=== PATIENT | female | born 1955 | race American Indian/Alaskan Native ===

== ENCOUNTER 2018-01-28 05:51 | Day surgery (SDC) | payer OTHER ==
[2018-01-28] MEDS ORDERED: ECOTRIN PO ONE ×2 (06:21→06:22)
[2018-01-28 06:56] LABS: Basophils # (Auto) 0.1 K/mm3 (0.0-0.1); Basophils % (Auto) 0.8 % (0.0-1.8); Eosinophils # (Auto) 0.3 K/mm3 (0.0-0.4); Hemoglobin 12.9 gm/dl (10.1-14.3); Lymphocytes # (Auto) 2.5 K/mm3 (1.2-5.4); Lymphocytes % (Auto) 38.4 % (13.4-35.0); Mean Corpuscular HGB Conc 33 % (30-34); Mean Corpuscular Hemoglobin 26 pg (28-32); Mean Corpuscular Volume 79 fl (79-97); Monocytes # (Auto) 0.5 K/mm3 (0.0-0.8); Platelet Count 286 K/mm3 (140-440); Red Blood Count 4.95 M/mm3 (3.65-5.03); Red Cell Distribution Width 14.3 % (13.2-15.2)
[2018-01-28] MEDS ORDERED: NACL 0.9% 500 ML 500 ML IV SCH (07:00)
[2018-01-28 07:03] LABS: INR 0.93 (0.87-1.13)
[2018-01-28 08:14] LABS: BUN/Creatinine Ratio 24; Blood Urea Nitrogen 22 mg/dL (7-17); Calcium 9.4 mg/dL (8.4-10.2); Hemolysis Index 18
[2018-01-28] MEDS ORDERED: XYLOCAINE 2% INFILTRATI ONE (08:43)
[2018-01-28] MEDS ORDERED: CALAN ONE (08:43)
[2018-01-28] MEDS ORDERED: NITROGLYCERIN SYRINGE 3 ML ONE (08:43)
[2018-01-28] MEDS ORDERED: HEPARIN/NS 5000 UNIT/500ML(CATH LAB) 1,000 ML IR ONE (08:43)
[2018-01-28] MEDS ORDERED: HEPARIN 10,000 UNITS/10 ML ONE (08:43)
[2018-01-28] MEDS ORDERED: VERSED ONE (08:45)
[2018-01-28] MEDS ORDERED: SUBLIMAZE ONE (08:45)
[2018-01-28] MEDS ORDERED: BENADRYL ONE (09:05)
--- NOTE | 2018-01-28 09:55 | Discharge Summary ---
Short Stay Discharge Plan Activity: advance as tolerated Weight Bearing Status: Full Weight Bearing Diet: low fat, low cholesterol, low salt Wound: keep clean and dry Special Instructions: no heavy lifting (3 days) Follow up with: JERI KURTZ MD [Primary Care Provider] - 7 Days MARIA EUGENIA RICHARDS MD [Staff Physician] - 7 Days
[2018-01-28] MEDS ORDERED: NACL 0.9% 1000 ML 1,000 ML IV SCH (10:00)
[2018-01-28 12:46] VITALS: BP 116/69
--- NOTE | 2018-01-29 00:02 | Cardiac Catherization Report ---
CARDIAC CATHETERIZATION REASON FOR PROCEDURE: Chest pain. PROCEDURE: The patient was prepped and draped in a sterile fashion after informed consent. The right radial cath site was prepped and draped after a negative Deon's test. The right radial artery was entered using the Seldinger technique followed by placement of a 6-Kinyarwanda hydrophilic sheath. Selective left and right coronary angiography was performed using #3.5 left Venus and #4 right Venus. The right Venus catheter was used for left ventricle angiography. FINDINGS: HEMODYNAMICS: Left ventricle end diastolic pressure was 21, following coronary angiography. Ascending aortic pressure was 140/69. There was no significant pressure gradient on pullback across the aortic valve. CORONARY ANGIOGRAPHY: There was mild proximal narrowing of the left main coronary artery. The left anterior descending artery and the diagonal branches were essentially angiographically normal. A large ramus intermedius artery was free of significant disease. There was a 30% luminal stenosis of a large circumflex artery located at its ostium. Otherwise, this vessel and its obtuse marginal branches were angiographically normal. The right coronary artery was dominant. This vessel contained a 30-50% stenosis of its proximal segment. Left ventricular chamber size and systolic function were within normal limits. Left ventricular ejection fraction 60-65%. CONCLUSION: 1. 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 2. No significant obstructive coronary lesions. 3. Normal left ventricular systolic function, ejection fraction 60-65%. RECOMMENDATION: Risk factor modification and medical therapy. JOB# [id number] CA/NTS
== END 2018-01-28 13:00 | disposition home or self-care (01) ==
LOC: CATHLABREC 05:51
PROVIDERS: ATTEND Internal Medicine Cardiovascular Disease
DX: I25.10 Atherosclerotic heart disease of native coronary artery without angina pectoris (principal); J45.909 Unspecified asthma, uncomplicated; I10 Essential (primary) hypertension; Z90.710 Acquired absence of both cervix and uterus
CPT/HCPCS: 36415; 80048; 85025; 85610; 85730; 93005; 93010; 93458; 99156; C1894; J1200; J1644; J1720; J2250; J3010; J7040; Q9967

== ENCOUNTER 2019-05-20 06:28 | Day surgery (SDC) | payer OTHER ==
[2019-05-20 07:23] LABS: Basophils # (Auto) 0.1 K/mm3 (0.0-0.1); Basophils % (Auto) 1.1 % (0.0-1.8); Eosinophils # (Auto) 0.3 K/mm3 (0.0-0.4); Eosinophils % (Auto) 4.9 % (0.0-4.3); Hematocrit 35.5 % (30.3-42.9); Hemoglobin 11.9 gm/dl (10.1-14.3); Lymphocytes % (Auto) 33.5 % (13.4-35.0); Mean Corpuscular HGB Conc 34 % (30-34); Mean Corpuscular Volume 83 fl (79-97); Monocytes # (Auto) 0.4 K/mm3 (0.0-0.8); Monocytes % (Auto) 6.2 % (0.0-7.3); Platelet Count 331 K/mm3 (140-440); Red Blood Count 4.28 M/mm3 (3.65-5.03); Red Cell Distribution Width 15.4 % (13.2-15.2)
[2019-05-20 07:34] LABS: INR 0.99 (0.87-1.13)
[2019-05-20 07:35] LABS: BUN/Creatinine Ratio 14; Blood Urea Nitrogen 11 mg/dL (7-17); Calcium 9.4 mg/dL (8.4-10.2); Hemolysis Index 1
[2019-05-20 07:37] LABS: Partial Thromboplastin Time 22.9 Sec. (24.2-36.6)
[2019-05-20] MEDS ORDERED: SUBLIMAZE IV ONE (08:12)
[2019-05-20] MEDS ORDERED: VERSED IV ONE (08:12)
[2019-05-20 10:48] VITALS: BP 131/55
--- NOTE | 2019-05-20 14:37 | Cat Scan Report ---
CT guided large pelvic mass biopsy Clinical history: 63 year-old female with history of previous hysterectomy and bilateral oophorectomy presenting with right lower quadrant palpable mass and tenderness. An informed consent was obtained. Then technique, risks and benefits of the procedure are given to the patient. The patient verbalized understanding. The potential complications of infection, bleeding, injury to other close-by structures were discussed. Technique: The patient was placed supine in the CT scanner. An external skin marker was placed over the right side of the lower abdomen and pelvis. Axial images are obtained to locate the mass. Evaluation of these images reveal the mass to be present in her right and at least although the urinary bladder and medial to the right iliac bone. Following this, the skin marker device was removed. A suitable site was chosen to perform percutaneous CT-guided biopsy. Using local anesthesia and aseptic precautions, a 15 mm of lidocaine 1% was administered in the skin, subcutaneous region and along the expected tract of the biopsy needle. The patient also received initially, 1 mg of Versed and 25 mcg of fentanyl. Since the patient complained of pain during the procedure, additional second dose of 1 mg of Versed and 25 mcg fentanyl was administered. After the local anesthesia, a 19-gauge biopsy needle and guiding trocar was introduced into the inferior and lateral aspect of the right side of the pelvic mass. Images of the pelvis was performed at this time to confirm the position of the tip of the medial to be within the mass. After confirming the tip of the needle to be in good position, 18-gauge biopsy gun was introduced through the trocar and 2 core biopsy specimen are obtained. The specimen was started with the pathologist and was tinged standby. Evaluation of the specimen under the microscope in the CT suite confirmed the adequacy of the sample for appropriate diagnosis. This time, the trocar was removed. After obtaining satisfactory hemostasis, the patient was transferred to the post procedure observation suite. Instructions were given to the nurse in charge far managing her for any adverse effects of medication, bleeding etc.., Impression: Successful CT-guided biopsy of the pelvic mass utilizing CT guidance, local anesthesia and mild conscious sedation.. The patient tolerated the procedure satisfactorily. No immediate postprocedure complications were noted. The biopsy results will be available in 2-3 working days.
== END 2019-05-20 11:40 | disposition home or self-care (01) ==
LOC: CATHLABREC 06:28 → EDSTATUS 07:30 → CATHLABREC 11:40
DX: C49.5 Malignant neoplasm of connective and soft tissue of pelvis (principal); E78.00 Pure hypercholesterolemia, unspecified; I10 Essential (primary) hypertension; J45.909 Unspecified asthma, uncomplicated; M79.89 Other specified soft tissue disorders; Z79.899 Other long term (current) drug therapy; Z79.82 Long term (current) use of aspirin; Z91.013 Allergy to seafood; Z98.890 Other specified postprocedural states; Z90.710 Acquired absence of both cervix and uterus; Z86.2 Personal history of diseases of the blood and blood-forming organs and certain disorders involving the immune mechanism
CPT/HCPCS: 20206; 36415; 77012; 80048; 85025; 85610; 85730; 88305; 88313; 88333; 88341; 88342; J2250; J3010; 88173; 88307